=== PATIENT | female | born 1990 | race Caucasian/White ===

== ENCOUNTER 2018-01-10 12:40 | Emergency (ER) | payer SELFPAY ==
[~2018-01-10] VITALS: Ht 167.6 cm; Wt 117.3 kg
[~2018-01-10 12:40] MED LIST: NORVASC2.5 MG PO; VASOTEC 5MG5 MG/TAB PO; WELLBUTRIN 100100 MG PO; WELLBUTRIN SR100 M1 PO
[2018-01-10 12:44] VITALS: TEMP 99
[2018-01-10 13:39] LABS: COLLECTION METHOD CLEAN CATCH
[2018-01-10 13:43] LABS: BASO # 0.1 (0.0-0.2); BASO % 0.4 % (0.0-2.0); EOS # 0.1 (0.0-0.7); EOS % 0.4 % (0-4.0); GRAN # 8.6 (1.4-6.5); GRAN % 74.4 % (42.2-75.2); HEMATOCRIT 38.3 % (37.0-47.0); HEMOGLOBIN 12.7 g/dl (12.5-16.0); MEAN CELL VOLUME 87 fl (80.0-100.0); MEAN CORPUSCULAR HEMOGLOBIN 29 pg (27.0-31.0); MEAN CORPUSCULAR HGB CONC 33 g/dl (33.0-37.0); MONO # 0.9 (0.1-0.6); MONO % 7.4 % (1.7-9.3); PLATELET COUNT 295 K/mm3 (130-400); RED BLOOD COUNT 4.43 M/mm3 (4.10-5.30); REDCELL DISTRIBUTION WIDTH-CV 15.4 % (11.5-14.5)
[2018-01-10 13:47] LABS: MUCOUS Present /lpf; PH 7 (5-8); URINE APPEARANCE Hazy; URINE BACTERIA None Seen /hpf; URINE BILIRUBIN Negative (NEGATIVE); URINE BLOOD Negative (NEGATIVE); URINE COLOR Yellow; URINE GLUCOSE Negative (NEGATIVE); URINE KETONE Negative (NEGATIVE); URINE LEUKOCYTE ESTERASE 3+ (NEGATIVE); URINE NITRATE Negative (NEGATIVE); URINE PROTEIN(semi-quant) Negative (NEGATIVE); URINE UROBILINOGEN Negative (NEGATIVE)
[2018-01-10 13:56] LABS: ALBUMIN 4.1 gm/dL (3.5-5.0); BILIRUBIN,TOTAL 0.2 mg/dL (0.0-1.0); CREATININE, serum 0.77 mg/dL (0.52-1.25); POTASSIUM 4.1 mmol/L (3.4-5.0); TOTAL PROTEIN 7.2 gm/dL (6.4-8.2)
[2018-01-10 16:43] VITALS: BP 155/87; PULSE 88
== END 2018-01-10 16:44 | disposition home or self-care (01) ==
LOC: COL.ER 12:40
PROVIDERS: Physician Assistant Medical
DX: O26.891 Other specified pregnancy related conditions, first trimester (principal); N89.8 Other specified noninflammatory disorders of vagina; O99.341 Other mental disorders complicating pregnancy, first trimester; F41.9 Anxiety disorder, unspecified; O99.331 Smoking (tobacco) complicating pregnancy, first trimester; F17.210 Nicotine dependence, cigarettes, uncomplicated; Z3A.01 Less than 8 weeks gestation of pregnancy; Z87.01 Personal history of pneumonia (recurrent); Z87.442 Personal history of urinary calculi; Z98.890 Other specified postprocedural states

== ENCOUNTER → 2018-02-12 | Outpatient (REF) | LOC: ZLAB.WCH 17:55 | DX: Z01.89 Encounter for other specified special examinations (principal) ==

== ENCOUNTER 2018-03-12 23:21 | Emergency (ER) | payer SELFPAY ==
[~2018-03-12] VITALS: Ht 167.6 cm; Wt 118.2 kg
[2018-03-12 23:26] VITALS: TEMP 98.8
[2018-03-12] MEDS ORDERED: PRENATAL (23:37)
[2018-03-12 23:46] LABS: BASO % 0.3 % (0.0-2.0); EOS # 0.1 (0.0-0.7); EOS % 0.7 % (0-4.0); GRAN # 7.7 (1.4-6.5); GRAN % 67.4 % (42.2-75.2); HEMATOCRIT 36.6 % (37.0-47.0); HEMOGLOBIN 12.9 g/dl (12.5-16.0); LYMPH # 2.6 (1.2-3.4); MEAN CELL VOLUME 85 fl (80.0-100.0); MEAN CORPUSCULAR HEMOGLOBIN 30 pg (27.0-31.0); MEAN CORPUSCULAR HGB CONC 35 g/dl (33.0-37.0); MEAN PLATELET VOLUME 9.4 fl (7.4-10.4); MONO # 0.9 (0.1-0.6); MONO % 8.2 % (1.7-9.3); PLATELET COUNT 270 K/mm3 (130-400)
[2018-03-12 23:59] LABS: ALANINE AMINOTRANSFERASE 27 U/L (9-52); ALBUMIN 3.5 gm/dL (3.5-5.0); ALKALINE PHOSPHATASE 52 U/L (50-136); ANION GAP 15 mmol/L (7-16); AST,SGOT 14 U/L (15-37); BILIRUBIN,TOTAL < 0.1 mg/dL (0.0-1.0); BLOOD UREA NITROGEN 10 mg/dL (7-17); CARBON DIOXIDE 21 mmol/L (22-30); CHLORIDE 107 mmol/L (98-107); CREATININE, serum 0.63 mg/dL (0.52-1.25); GLUCOSE 87 mg/dL (74-106); POTASSIUM 3.9 mmol/L (3.4-5.0); SODIUM 142 mmol/L (137-145)
[2018-03-13 00:04] LABS: LIPASE 50 U/L (23-300)
[2018-03-13 00:11] LABS: GASTROCCULT POSITIVE; pH GASTRIC CONTENTS 7+
[2018-03-13] MEDS ORDERED: PHENERGAN 25 TA25 MG PO (00:56)
[2018-03-13] MEDS ORDERED: PROTONIX 40MG T40 MG PO (01:03)
[2018-03-13 01:09] VITALS: BP 117/79; PULSE 72
== END 2018-03-13 01:12 | disposition home or self-care (01) ==
LOC: COL.ER 23:21
PROVIDERS: Emergency Medicine
DX: O21.8 Other vomiting complicating pregnancy (principal); K92.0 Hematemesis; O16.2 Unspecified maternal hypertension, second trimester; O99.612 Diseases of the digestive system complicating pregnancy, second trimester; K21.9 Gastro-esophageal reflux disease without esophagitis; Z98.890 Other specified postprocedural states; Z3A.13 13 weeks gestation of pregnancy
CPT/HCPCS: C9113; J2405; J2550; J7030

== ENCOUNTER 2018-05-22 04:22 | Outpatient (CLI) | payer MEDICAID ==
[~2018-05-22] VITALS: Ht 167.6 cm; Wt 121.4 kg
[~2018-05-22 04:22] MED LIST changes: -ASPIRIN 81M81 MG/TA2 PO; -PRINIVIL20 MG PO
[2018-05-22 04:30] VITALS: BP 138/67; PULSE 83; TEMP 98.5
[2018-05-22 04:33] VITALS: BP 138/67; PULSE 83; TEMP 98.5
[2018-05-22] MEDS ORDERED: PRINIVIL20 MG PO (04:39)
[2018-05-22] MEDS ORDERED: ASPIRIN 81M81 MG/TA2 PO (04:40)
[2018-05-22 05:24] LABS: BASO % 0.3 % (0.0-2.0); EOS # 0.1 (0.0-0.7); EOS % 0.9 % (0-4.0); GRAN # 8.9 (1.4-6.5); GRAN % 71.9 % (42.2-75.2); LYMPH # 2.2 (1.2-3.4); LYMPH % 18.1 % (20.0-51.0); MEAN CELL VOLUME 91 fl (80.0-100.0); MEAN CORPUSCULAR HEMOGLOBIN 31 pg (27.0-31.0); MEAN CORPUSCULAR HGB CONC 34 g/dl (33.0-37.0); MEAN PLATELET VOLUME 9.4 fl (7.4-10.4); MONO # 0.9 (0.1-0.6); MONO % 7.6 % (1.7-9.3); PLATELET COUNT 250 K/mm3 (130-400); RED BLOOD COUNT 3.58 M/mm3 (4.10-5.30); REDCELL DISTRIBUTION WIDTH-CV 13.7 % (11.5-14.5)
[2018-05-22 05:25] LABS: HEMATOCRIT 32.6 % (37.0-47.0)
[2018-05-22 05:30] VITALS: BP 131/68; PULSE 76
[2018-05-22 05:55] LABS: HIV 1/2 Antibodies Non-Reactive; HIV-1p24 Antigen Non-Reactive
[2018-05-22 05:56] LABS: COLLECTION METHOD CLEAN CATCH
[2018-05-22 06:07] LABS: MUCOUS Present /lpf; PH 6 (5-8); SQUAMOUS EPITHELIAL 0-2 /hpf; URINE APPEARANCE Clear; URINE BACTERIA None Seen /hpf; URINE BILIRUBIN Negative (NEGATIVE); URINE BLOOD Negative (NEGATIVE); URINE CALCIUM OXALATE CRYSTAL Present /hpf; URINE COLOR Yellow; URINE GLUCOSE Negative (NEGATIVE); URINE KETONE Negative (NEGATIVE); URINE LEUKOCYTE ESTERASE Negative (NEGATIVE); URINE NITRATE Negative (NEGATIVE); URINE PROTEIN(semi-quant) Negative (NEGATIVE); URINE RBC 0-2 /hpf; URINE UROBILINOGEN Negative (NEGATIVE)
[2018-05-22 06:11] LABS: TRICYCLIC ANTIDEPRESS URINE NEGATIVE
[2018-05-22 15:22] LABS: HEPATITIS B SURFACE ANTIGEN Negative (())
[2018-05-23 05:23] LABS: RPR (VDRL) Non-reactive (())
== END 2018-05-22 06:35 | disposition home or self-care (01) ==
LOC: LDRO 04:22
PROVIDERS: Obstetrics & Gynecology
DX: O99.89 Other specified diseases and conditions complicating pregnancy, childbirth and the puerperium (principal); M54.9 Dorsalgia, unspecified; R10.9 Unspecified abdominal pain; Z3A.26 26 weeks gestation of pregnancy

== ENCOUNTER → 2018-05-22 | Outpatient (REF) ==
[~2018-05-22] MED LIST changes: +ASPIRIN 81M81 MG/TA2 PO; +PHENERGAN 25 TA25 MG PO; +PRENATAL; +PRINIVIL20 MG PO; +PROTONIX 40MG T40 MG PO
== END ==
LOC: ZLAB.WCH 08:38
DX: Z01.89 Encounter for other specified special examinations (principal)

== ENCOUNTER → 2018-06-19 | Outpatient (CLI) | payer MEDICAID ==
[~2018-06-19] MED LIST changes: +ASPIRIN 81M81 MG/TA2 PO; +PRINIVIL20 MG PO
== END ==
LOC: SUN.DIA 10:49
DX: O24.419 Gestational diabetes mellitus in pregnancy, unspecified control (principal); Z3A.29 29 weeks gestation of pregnancy
CPT/HCPCS: G0108

== ENCOUNTER 2018-07-22 00:37 | Outpatient (CLI) | payer MEDICAID ==
[~2018-07-22] VITALS: Ht 167.6 cm; Wt 116.8 kg
[2018-07-22 01:10] VITALS: BP 118/71; PULSE 83; TEMP 98.3
[2018-07-22] MEDS ORDERED: TRANDATE 100MG100 MG PO (01:26)
[2018-07-22 03:17] VITALS: BP 118/71; PULSE 83; TEMP 98.6
== END 2018-07-22 02:12 | disposition home or self-care (01) ==
LOC: LDRO 00:37
DX: O99.89 Other specified diseases and conditions complicating pregnancy, childbirth and the puerperium (principal); R10.30 Lower abdominal pain, unspecified; Z3A.34 34 weeks gestation of pregnancy

== ENCOUNTER 2018-07-29 00:01 | Outpatient (CLI) | payer MEDICAID ==
[~2018-07-29] VITALS: Ht 167.6 cm; Wt 119.1 kg
[~2018-07-29 00:01] MED LIST changes: +TRANDATE 100MG100 MG PO
[2018-07-29 00:30] VITALS: BP 130/84; PULSE 75; TEMP 98.2
[2018-07-29] MEDS ORDERED: CEPHALEXIN500 M1 PO (00:37)
[2018-07-29] MEDS ORDERED: PROTONIX 40MG T40 MG PO (00:38)
[2018-07-29] MEDS ORDERED: ASPIRIN 81M81 MG/TA2 PO (00:39)
[2018-07-29 00:40] VITALS: BP 142/79; PULSE 92
[2018-07-29 00:42] VITALS: BP 130/84; PULSE 75
[2018-07-29 00:45] VITALS: BP 148/88; PULSE 82
[2018-07-29 00:50] VITALS: BP 132/64; PULSE 77
== END 2018-07-29 01:40 | disposition home or self-care (01) ==
LOC: COL.ER 00:01 → LDRO 00:01 → EDSTATUS 00:24 → LDRO 01:40
DX: O99.89 Other specified diseases and conditions complicating pregnancy, childbirth and the puerperium (principal); R51 Headache; Z86.79 Personal history of other diseases of the circulatory system; Z3A.35 35 weeks gestation of pregnancy

== ENCOUNTER 2018-08-13 18:56 | Outpatient (CLI) | payer MEDICAID ==
[2018-08-13] VITALS (8 sets, daily range): BP systolic 133–141; BP diastolic 81–89; PULSE 87–108; TEMP 98.2
[~2018-08-13] VITALS: Ht 167.6 cm; Wt 119.1 kg
[~2018-08-13 18:56] MED LIST changes: +CEPHALEXIN500 M1 PO
[2018-08-13] MEDS ORDERED: TRANDATE 200MG200 MG PO (19:15)
[2018-08-13 20:12] LABS: BASO % 0.2 % (0.0-2.0); EOS # 0.1 (0.0-0.7); EOS % 0.8 % (0-4.0); GRAN # 9.2 (1.4-6.5); GRAN % 73.2 % (42.2-75.2); HEMOGLOBIN 11.6 g/dl (12.5-16.0); LYMPH % 15.8 % (20.0-51.0); MEAN CELL VOLUME 89 fl (80.0-100.0); MEAN CORPUSCULAR HEMOGLOBIN 30 pg (27.0-31.0); MEAN CORPUSCULAR HGB CONC 34 g/dl (33.0-37.0); MEAN PLATELET VOLUME 9.8 fl (7.4-10.4); MONO # 1.2 (0.1-0.6); MONO % 9.4 % (1.7-9.3); PLATELET COUNT 287 K/mm3 (130-400); RED BLOOD COUNT 3.86 M/mm3 (4.10-5.30); REDCELL DISTRIBUTION WIDTH-CV 13.4 % (11.5-14.5)
[2018-08-13 20:14] LABS: HEMATOCRIT 34.5 % (37.0-47.0)
[2018-08-13 20:19] LABS: ALBUMIN 3.2 gm/dL (3.5-5.0); BILIRUBIN,TOTAL 0.2 mg/dL (0.0-1.0); CALCIUM 8.9 mg/dL (8.4-10.2); CREATININE, serum 0.82 mg/dL (0.52-1.25); POTASSIUM 4.2 mmol/L (3.4-5.0); TOTAL PROTEIN 6.5 gm/dL (6.4-8.2)
[2018-08-13 20:22] LABS: COLLECTION METHOD CLEAN CATCH
[2018-08-13 20:29] LABS: MUCOUS Present /lpf; PH 6 (5-8); SQUAMOUS EPITHELIAL 0-2 /hpf; URINE APPEARANCE Clear; URINE BACTERIA Rare /hpf; URINE BILIRUBIN Negative (NEGATIVE); URINE BLOOD Negative (NEGATIVE); URINE COLOR Yellow; URINE GLUCOSE Negative (NEGATIVE); URINE KETONE Negative (NEGATIVE); URINE LEUKOCYTE ESTERASE Negative (NEGATIVE); URINE NITRATE Negative (NEGATIVE); URINE PROTEIN(semi-quant) Negative (NEGATIVE); URINE RBC 0-2 /hpf; URINE UROBILINOGEN Negative (NEGATIVE); URINE WBC 0-2 /hpf
== END 2018-08-13 20:59 | disposition home or self-care (01) ==
LOC: LDRO 18:56
PROVIDERS: Obstetrics & Gynecology
DX: O99.89 Other specified diseases and conditions complicating pregnancy, childbirth and the puerperium (principal); R42 Dizziness and giddiness; R25.2 Cramp and spasm; Z3A.37 37 weeks gestation of pregnancy

== ENCOUNTER 2018-08-15 06:22 | Inpatient (IN) | payer MEDICAID ==
[2018-08-15] VITALS (41 sets, daily range): BP systolic 103–174; BP diastolic 50–99; PULSE 54–108; TEMP 97.5–98.9
[~2018-08-15] VITALS: Ht 167.6 cm; Wt 119.1 kg
[~2018-08-15 06:22] MED LIST changes: +TRANDATE 200MG200 MG PO
[2018-08-15 08:08] LABS: BASO % 0.3 % (0.0-2.0); EOS # 0.1 (0.0-0.7); EOS % 0.7 % (0-4.0); GRAN # 8.6 (1.4-6.5); GRAN % 75.3 % (42.2-75.2); HEMOGLOBIN 11.5 g/dl (12.5-16.0); LYMPH # 1.7 (1.2-3.4); MEAN CELL VOLUME 89 fl (80.0-100.0); MEAN CORPUSCULAR HEMOGLOBIN 30 pg (27.0-31.0); MEAN CORPUSCULAR HGB CONC 34 g/dl (33.0-37.0); MONO # 0.9 (0.1-0.6); PLATELET COUNT 302 K/mm3 (130-400); RED BLOOD COUNT 3.86 M/mm3 (4.10-5.30); REDCELL DISTRIBUTION WIDTH-CV 13.4 % (11.5-14.5)
[2018-08-15 08:10] LABS: HEMATOCRIT 34.2 % (37.0-47.0)
[2018-08-15] MEDS ORDERED: PERCOCET 325 MG1 TA2 PO (16:14)
[2018-08-15] MEDS ORDERED: MOTRIN 800800 MG/TAB PO (16:14)
[2018-08-16 03:00] VITALS: BP 135/95; PULSE 75; TEMP 98
[2018-08-16 07:00] VITALS: BP 144/99; PULSE 82; TEMP 97.8
[2018-08-16 12:00] VITALS: BP 127/70; PULSE 68; TEMP 97.5
[2018-08-16 15:45] VITALS: BP 133/96; PULSE 76; TEMP 98.9
[2018-08-16 17:00] VITALS: BP 136/99; PULSE 80
[2018-08-16 20:35] VITALS: BP 156/96; PULSE 71; TEMP 99
[2018-08-17 01:50] VITALS: BP 153/90; PULSE 83
[2018-08-17 06:45] VITALS: BP 137/70; PULSE 72; TEMP 97.8
[2018-08-17] MEDS ORDERED: TRANDATE300 MG PO (09:29)
[2018-08-17] MEDS ORDERED: PERCOCET 325 MG1 TA2 PO (09:30)
== END 2018-08-17 11:40 | disposition home or self-care (01) | DRG 775 ==
LOC: OB 06:22 → LDR 06:22 → OB 20:00
PROVIDERS: Obstetrics & Gynecology
PROC: 10E0XZZ Delivery of Products of Conception, External Approach (ICD-10-PCS; principal; 2018-08-15)
PROC: 3E033VJ Introduction of Other Hormone into Peripheral Vein, Percutaneous Approach (ICD-10-PCS; 2018-08-15)
PROC: 10907ZC Drainage of Amniotic Fluid, Therapeutic from Products of Conception, Via Natural or Artificial Opening (ICD-10-PCS; 2018-08-15)
PROC: 0HQ9XZZ Repair Perineum Skin, External Approach (ICD-10-PCS; 2018-08-15)
DX: O11.4 Pre-existing hypertension with pre-eclampsia, complicating childbirth (principal); Z3A.37 37 weeks gestation of pregnancy; Z37.0 Single live birth; O24.420 Gestational diabetes mellitus in childbirth, diet controlled; O99.214 Obesity complicating childbirth; O70.0 First degree perineal laceration during delivery; O99.344 Other mental disorders complicating childbirth; F41.8 Other specified anxiety disorders; E66.01 Morbid (severe) obesity due to excess calories
CPT/HCPCS: J1200; J2590; J2795; J7120

== ENCOUNTER 2018-09-06 15:59 | Emergency (ER) | payer MEDICAID ==
[~2018-09-06] VITALS: Ht 167.6 cm; Wt 112.3 kg
[~2018-09-06 15:59] MED LIST changes: +MOTRIN 800800 MG/TAB PO; +PERCOCET 325 MG1 TA2 PO; +TRANDATE300 MG PO
[2018-09-06 16:07] VITALS: TEMP 99.1
[2018-09-06 16:25] LABS: COLLECTION METHOD CLEAN CATCH
[2018-09-06 16:40] LABS: MUCOUS Present /lpf; PH 6 (5-8); URINE APPEARANCE Clear; URINE BACTERIA None Seen /hpf; URINE BILIRUBIN Negative (NEGATIVE); URINE BLOOD 3+ (NEGATIVE); URINE COLOR Yellow; URINE GLUCOSE Negative (NEGATIVE); URINE KETONE Negative (NEGATIVE); URINE LEUKOCYTE ESTERASE 1+ (NEGATIVE); URINE NITRATE Negative (NEGATIVE); URINE PROTEIN(semi-quant) Negative (NEGATIVE); URINE UROBILINOGEN Negative (NEGATIVE)
[2018-09-06 16:43] LABS: BASO % 0.5 % (0.0-2.0); EOS # 0.1 (0.0-0.7); EOS % 1.5 % (0-4.0); GRAN # 5.1 (1.4-6.5); GRAN % 62.5 % (42.2-75.2); HEMATOCRIT 40.4 % (37.0-47.0); HEMOGLOBIN 13.1 g/dl (12.5-16.0); LYMPH # 2.2 (1.2-3.4); LYMPH % 26.4 % (20.0-51.0); MEAN CELL VOLUME 90 fl (80.0-100.0); MEAN CORPUSCULAR HEMOGLOBIN 29 pg (27.0-31.0); MEAN CORPUSCULAR HGB CONC 32 g/dl (33.0-37.0); MEAN PLATELET VOLUME 9.5 fl (7.4-10.4); MONO # 0.7 (0.1-0.6); MONO % 8.7 % (1.7-9.3); PLATELET COUNT 353 K/mm3 (130-400); RED BLOOD COUNT 4.49 M/mm3 (4.10-5.30); REDCELL DISTRIBUTION WIDTH-CV 13.4 % (11.5-14.5)
[2018-09-06 16:47] LABS: PROTHROMBIN TIME 10.9 SECONDS (9.7-12.8)
[2018-09-06 16:54] LABS: BILIRUBIN,TOTAL 0.3 mg/dL (0.0-1.0); CREATININE, serum 0.7 mg/dL (0.52-1.25); TOTAL PROTEIN 7.2 gm/dL (6.4-8.2)
[2018-09-06 18:23] VITALS: BP 120/85; PULSE 64
== END 2018-09-06 18:23 | disposition home or self-care (01) ==
LOC: COL.ER 15:59
PROVIDERS: Physician Assistant
DX: G43.909 Migraine, unspecified, not intractable, without status migrainosus (principal); I10 Essential (primary) hypertension; F41.9 Anxiety disorder, unspecified; F17.210 Nicotine dependence, cigarettes, uncomplicated; Z88.2 Allergy status to sulfonamides; Z88.1 Allergy status to other antibiotic agents
CPT/HCPCS: J1170; J1885; J2550; J7030

== ENCOUNTER 2019-02-05 22:44 | Emergency (ER) | payer MEDICAID ==
[~2019-02-05] VITALS: Ht 167.6 cm; Wt 121.8 kg
[2019-02-05 22:50] VITALS: TEMP 98.9
[2019-02-05] MEDS ORDERED: PRINIVIL20 MG PO (23:06)
[2019-02-05] MEDS ORDERED: DEPRESSION MED (23:07)
[2019-02-05] MEDS ORDERED: NEXPLANON68 MG ID (23:07)
[2019-02-06] MEDS ORDERED: PHENERGAN 25 TA25 MG PO (01:26)
[2019-02-06 02:18] VITALS: BP 140/81; PULSE 70
== END 2019-02-06 02:18 | disposition home or self-care (01) ==
LOC: COL.ER 22:44
DX: G43.909 Migraine, unspecified, not intractable, without status migrainosus (principal); J06.9 Acute upper respiratory infection, unspecified; I10 Essential (primary) hypertension; F17.210 Nicotine dependence, cigarettes, uncomplicated
CPT/HCPCS: J1100; J1200; J1885; J2550; J7030

== ENCOUNTER 2019-08-16 16:17 | Emergency (ER) | payer MEDICAID ==
[~2019-08-16] VITALS: Ht 167.6 cm; Wt 126.4 kg
[~2019-08-16 16:17] MED LIST changes: +DEPRESSION MED; +NEXPLANON68 MG ID
[2019-08-16 16:20] VITALS: BP 189/101; TEMP 98.4
[2019-08-16] MEDS ORDERED: FLEXERIL 1010 MG/TAB PO (16:24)
[2019-08-16] MEDS ORDERED: PREDNISONE10 MG PO (16:25)
[2019-08-16] MEDS ORDERED: EFFEXOR XR75 MG/CAP PO (16:26)
[2019-08-16] MEDS ORDERED: BUSPAR5 MG PO (16:26)
[2019-08-16] MEDS ORDERED: KLONOPIN 1MG1 MG PO (16:27)
[2019-08-16] MEDS ORDERED: FLONASE NASAL S16 GM (16:27)
[2019-08-16] MEDS ORDERED: NORCO 325 MG-7.1 TAB PO (16:56)
[2019-08-16] MEDS ORDERED: LIDODERM 5% PATC1 EA TP (17:03)
[2019-08-16 18:14] VITALS: PULSE 72
== END 2019-08-16 18:13 | disposition home or self-care (01) ==
LOC: COL.ER 16:17
DX: M54.5 Low back pain (principal); M62.830 Muscle spasm of back; I10 Essential (primary) hypertension; Z88.2 Allergy status to sulfonamides; Z88.1 Allergy status to other antibiotic agents
CPT/HCPCS: J1170; J2550

== ENCOUNTER 2019-09-04 16:56 | Emergency (ER) | payer MEDICAID ==
[~2019-09-04] VITALS: Ht 167.6 cm; Wt 127.3 kg
[~2019-09-04 16:56] MED LIST changes: +BUSPAR5 MG PO; +EFFEXOR XR75 MG/CAP PO; +FLEXERIL 1010 MG/TAB PO; +FLONASE NASAL S16 GM; +KLONOPIN 1MG1 MG PO; +LIDODERM 5% PATC1 EA TP; +NORCO 325 MG-7.1 TAB PO; +PREDNISONE10 MG PO
[2019-09-04 17:04] VITALS: TEMP 98.1
[2019-09-04] MEDS ORDERED: NORVASC 5MG5 MG/TAB PO (17:04)
[2019-09-04] MEDS ORDERED: DYAZIDE 25 MG-31 CAP PO (17:04)
[2019-09-04 17:31] LABS: BASO # 0.1 (0.0-0.2); BASO % 0.5 % (0.0-2.0); EOS # 0.2 (0.0-0.7); EOS % 1.6 % (0-4.0); GRAN # 8.6 (1.4-6.5); GRAN % 70.5 % (42.2-75.2); HEMOGLOBIN 11.5 g/dl (12.5-16.0); LYMPH # 2.4 (1.2-3.4); LYMPH % 19.7 % (20.0-51.0); MEAN CELL VOLUME 82 fl (80.0-100.0); MEAN CORPUSCULAR HEMOGLOBIN 26 pg (27.0-31.0); MEAN CORPUSCULAR HGB CONC 32 g/dl (33.0-37.0); MEAN PLATELET VOLUME 10.7 fl (7.4-10.4); MONO # 0.9 (0.1-0.6); MONO % 7.3 % (1.7-9.3); PLATELET COUNT 173 K/mm3 (130-400); RED BLOOD COUNT 4.44 M/mm3 (4.10-5.30); REDCELL DISTRIBUTION WIDTH-CV 15.8 % (11.5-14.5)
[2019-09-04 17:36] LABS: HEMATOCRIT 36.4 % (37.0-47.0)
[2019-09-04 17:45] LABS: ALANINE AMINOTRANSFERASE 22 U/L (9-52); ALBUMIN 4.5 gm/dL (3.5-5.0); ALKALINE PHOSPHATASE 75 U/L (50-136); ANION GAP 11 mmol/L (7-16); AST,SGOT 25 U/L (15-37); BILIRUBIN,TOTAL 0.2 mg/dL (0.0-1.0); BLOOD UREA NITROGEN 13 mg/dL (7-17); CALCIUM 9.6 mg/dL (8.4-10.2); CARBON DIOXIDE 24 mmol/L (22-30); CHLORIDE 106 mmol/L (98-107); CREATINE KINASE 89 U/L (30-135); CREATININE, serum 0.76 (0.52-1.25); GLUCOSE 87 mg/dL (74-106); POTASSIUM 3.8 mmol/L (3.4-5.0); SODIUM 140 mmol/L (137-145); TOTAL PROTEIN 7.7 gm/dL (6.4-8.2)
[2019-09-04 18:00] LABS: TROPONIN-I < 0.012 ng/mL (0.000-0.035)
[2019-09-04 18:46] VITALS: BP 136/86; PULSE 80
== END 2019-09-04 19:10 | disposition home or self-care (01) ==
LOC: COL.ER 16:56
PROVIDERS: Emergency Medicine
DX: I10 Essential (primary) hypertension (principal); R07.89 Other chest pain; G43.909 Migraine, unspecified, not intractable, without status migrainosus; F17.210 Nicotine dependence, cigarettes, uncomplicated; Z87.442 Personal history of urinary calculi
CPT/HCPCS: J3010

== ENCOUNTER 2019-10-19 13:07 | Emergency (ER) | payer MEDICAID ==
[~2019-10-19] VITALS: Ht 167.6 cm; Wt 125.0 kg
[~2019-10-19 13:07] MED LIST changes: +DYAZIDE 25 MG-31 CAP PO; +NORVASC 5MG5 MG/TAB PO
[2019-10-19 13:18] VITALS: TEMP 99.4
[2019-10-19 14:22] LABS: BASO % 0.2 % (0.0-2.0); EOS # 0.1 (0.0-0.7); EOS % 0.6 % (0-4.0); GRAN # 8.8 (1.4-6.5); GRAN % 81.1 % (42.2-75.2); HEMOGLOBIN 11.2 g/dl (12.5-16.0); LYMPH # 1.1 (1.2-3.4); LYMPH % 9.7 % (20.0-51.0); MEAN CELL VOLUME 82 fl (80.0-100.0); MEAN CORPUSCULAR HEMOGLOBIN 25 pg (27.0-31.0); MEAN CORPUSCULAR HGB CONC 31 g/dl (33.0-37.0); MEAN PLATELET VOLUME 9.3 fl (7.4-10.4); MONO # 0.9 (0.1-0.6); MONO % 8.1 % (1.7-9.3); PLATELET COUNT 322 K/mm3 (130-400); RED BLOOD COUNT 4.47 M/mm3 (4.10-5.30); REDCELL DISTRIBUTION WIDTH-CV 16.3 % (11.5-14.5)
[2019-10-19 14:32] LABS: ALANINE AMINOTRANSFERASE 26 U/L (9-52); ALBUMIN 4.1 gm/dL (3.5-5.0); ALKALINE PHOSPHATASE 63 U/L (50-136); ANION GAP 7 mmol/L (7-16); AST,SGOT 21 U/L (15-37); BILIRUBIN,TOTAL 0.3 mg/dL (0.0-1.0); BLOOD UREA NITROGEN 10 mg/dL (7-17); CALCIUM 8.6 mg/dL (8.4-10.2); CARBON DIOXIDE 26 mmol/L (22-30); CHLORIDE 107 mmol/L (98-107); CREATININE, serum 0.71 (0.52-1.25); GLUCOSE 90 mg/dL (74-106); LIPASE 24 U/L (23-300); SODIUM 139 mmol/L (137-145); TOTAL PROTEIN 7.1 gm/dL (6.4-8.2)
[2019-10-19 14:35] LABS: HEMATOCRIT 36.5 % (37.0-47.0)
[2019-10-19 14:54] LABS: TROPONIN-I < 0.012 ng/mL (0.000-0.035)
[2019-10-19] MEDS ORDERED: DYAZIDE 25 MG-31 CAP PO (16:25)
[2019-10-19] MEDS ORDERED: NORVASC 10MG10 MG PO (16:25)
[2019-10-19 17:25] VITALS: BP 143/95; PULSE 111
== END 2019-10-19 17:25 | disposition home or self-care (01) ==
LOC: COL.ER 13:07
PROVIDERS: Emergency Medicine
DX: I10 Essential (primary) hypertension (principal); R11.2 Nausea with vomiting, unspecified; Z87.442 Personal history of urinary calculi
CPT/HCPCS: J0780; J7040

== ENCOUNTER 2019-12-04 22:32 | Emergency (ER) | payer SELFPAY ==
[~2019-12-04] VITALS: Ht 167.6 cm; Wt 127.7 kg
[~2019-12-04 22:32] MED LIST changes: +NORVASC 10MG10 MG PO
[2019-12-04 22:37] VITALS: BP 138/95; TEMP 97.9
[2019-12-04 22:47] LABS: COLLECTION METHOD CLEAN CATCH
[2019-12-04 22:55] LABS: MUCOUS Present /lpf; PH 6 (5-8); URINE APPEARANCE Cloudy; URINE BACTERIA None Seen /hpf; URINE BILIRUBIN Negative (NEGATIVE); URINE BLOOD 3+ (NEGATIVE); URINE COLOR Yellow; URINE GLUCOSE Negative (NEGATIVE); URINE KETONE Negative (NEGATIVE); URINE LEUKOCYTE ESTERASE 3+ (NEGATIVE); URINE NITRATE Negative (NEGATIVE); URINE PROTEIN(semi-quant) 1+ (NEGATIVE); URINE RBC >50 /hpf; URINE UROBILINOGEN Negative (NEGATIVE)
[2019-12-04] MEDS ORDERED: OMNICEF 300MG300 MG PO (23:07)
[2019-12-04 23:59] VITALS: PULSE 91
== END 2019-12-04 23:59 | disposition home or self-care (01) ==
LOC: COL.ER 22:32
PROVIDERS: Emergency Medicine
DX: O23.91 Unspecified genitourinary tract infection in pregnancy, first trimester (principal); O99.331 Smoking (tobacco) complicating pregnancy, first trimester; Z3A.01 Less than 8 weeks gestation of pregnancy; Z88.0 Allergy status to penicillin; Z88.2 Allergy status to sulfonamides
CPT/HCPCS: A4216; J0696

== ENCOUNTER 2019-12-14 05:12 | Emergency (ER) | payer SELFPAY ==
[~2019-12-14] VITALS: Ht 157.5 cm; Wt 125.5 kg
[~2019-12-14 05:12] MED LIST changes: +OMNICEF 300MG300 MG PO
[2019-12-14 05:21] VITALS: TEMP 98.9
[2019-12-14 06:08] LABS: BASO # 0.1 (0.0-0.2); BASO % 0.6 % (0.0-2.0); EOS # 0.1 (0.0-0.7); EOS % 0.6 % (0-4.0); GRAN # 7.2 (1.4-6.5); GRAN % 66.7 % (42.2-75.2); HEMATOCRIT 37.3 % (37.0-47.0); HEMOGLOBIN 11.9 g/dl (12.5-16.0); LYMPH # 2.5 (1.2-3.4); LYMPH % 23.3 % (20.0-51.0); MEAN CELL VOLUME 82 fl (80.0-100.0); MEAN CORPUSCULAR HEMOGLOBIN 26 pg (27.0-31.0); MEAN CORPUSCULAR HGB CONC 32 g/dl (33.0-37.0); MEAN PLATELET VOLUME 9.7 fl (7.4-10.4); MONO # 0.9 (0.1-0.6); MONO % 8.3 % (1.7-9.3); PLATELET COUNT 324 K/mm3 (130-400); RED BLOOD COUNT 4.54 M/mm3 (4.10-5.30); REDCELL DISTRIBUTION WIDTH-CV 17.9 % (11.5-14.5)
[2019-12-14 06:19] LABS: ALANINE AMINOTRANSFERASE 16 U/L (9-52); ALKALINE PHOSPHATASE 57 U/L (50-136); ANION GAP 9 mmol/L (7-16); AST,SGOT 19 U/L (15-37); BILIRUBIN,TOTAL 0.3 mg/dL (0.0-1.0); BLOOD UREA NITROGEN 10 mg/dL (7-17); CALCIUM 8.9 mg/dL (8.4-10.2); CARBON DIOXIDE 20 mmol/L (22-30); CHLORIDE 108 mmol/L (98-107); CREATININE, serum 0.72 (0.52-1.25); GLUCOSE 85 mg/dL (74-106); LIPASE 37 U/L (23-300); POTASSIUM 4.1 mmol/L (3.4-5.0); SODIUM 138 mmol/L (137-145); TOTAL PROTEIN 7.1 gm/dL (6.4-8.2)
[2019-12-14 06:19] LABS: COLLECTION METHOD CLEAN CATCH
[2019-12-14 06:25] LABS: MUCOUS Present /lpf; PH 6 (5-8); URINE APPEARANCE Clear; URINE BACTERIA None Seen /hpf; URINE BILIRUBIN Negative (NEGATIVE); URINE BLOOD Negative (NEGATIVE); URINE COLOR Yellow; URINE GLUCOSE Negative (NEGATIVE); URINE KETONE Negative (NEGATIVE); URINE LEUKOCYTE ESTERASE Negative (NEGATIVE); URINE NITRATE Negative (NEGATIVE); URINE PROTEIN(semi-quant) Negative (NEGATIVE); URINE RBC 0-2 /hpf; URINE UROBILINOGEN Negative (NEGATIVE)
[2019-12-14 06:36] LABS: TROPONIN-I < 0.012 ng/mL (0.000-0.035)
[2019-12-14] MEDS ORDERED: NORCO 325 MG-51 TAB PO (10:05)
[2019-12-14] MEDS ORDERED: PHENERGAN 25 TA25 MG PO (10:05)
[2019-12-14 10:18] VITALS: BP 137/99; PULSE 89
== END 2019-12-14 10:22 | disposition home or self-care (01) ==
LOC: COL.ER 05:12
PROVIDERS: Emergency Medicine
DX: O26.891 Other specified pregnancy related conditions, first trimester (principal); O21.0 Mild hyperemesis gravidarum; R10.9 Unspecified abdominal pain; I10 Essential (primary) hypertension; R68.84 Jaw pain; Z3A.01 Less than 8 weeks gestation of pregnancy
CPT/HCPCS: J2405; J7030

== ENCOUNTER 2020-01-10 13:34 | Emergency (ER) | payer MEDICAID ==
[~2020-01-10] VITALS: Ht 167.6 cm; Wt 125.0 kg
[~2020-01-10 13:34] MED LIST changes: +NORCO 325 MG-51 TAB PO
[2020-01-10 13:43] VITALS: BP 131/83; TEMP 98.8
[2020-01-10 14:45] LABS: BASO # 0.1 (0.0-0.2); BASO % 0.4 % (0.0-2.0); EOS # 0.1 (0.0-0.7); EOS % 0.5 % (0-4.0); GRAN # 10.8 (1.4-6.5); HEMATOCRIT 39.3 % (37.0-47.0); HEMOGLOBIN 12.6 g/dl (12.5-16.0); LYMPH # 1.5 (1.2-3.4); LYMPH % 11.2 % (20.0-51.0); MEAN CELL VOLUME 84 fl (80.0-100.0); MEAN CORPUSCULAR HEMOGLOBIN 27 pg (27.0-31.0); MEAN CORPUSCULAR HGB CONC 32 g/dl (33.0-37.0); MEAN PLATELET VOLUME 9.4 fl (7.4-10.4); MONO # 1.2 (0.1-0.6); MONO % 8.5 % (1.7-9.3); PLATELET COUNT 317 K/mm3 (130-400); RED BLOOD COUNT 4.66 M/mm3 (4.10-5.30); REDCELL DISTRIBUTION WIDTH-CV 18.6 % (11.5-14.5)
[2020-01-10 14:58] LABS: BILIRUBIN,TOTAL 0.2 mg/dL (0.0-1.0); CALCIUM 8.5 mg/dL (8.4-10.2); CREATININE, serum 0.55 (0.52-1.25); POTASSIUM 4.4 mmol/L (3.4-5.0); TOTAL PROTEIN 7.2 gm/dL (6.4-8.2)
[2020-01-10] MEDS ORDERED: OMNICEF 300MG300 MG PO (16:48)
[2020-01-10] MEDS ORDERED: PROAIR HFA0.09 MG/AC IH (16:48)
[2020-01-10 17:14] LABS: COLLECTION METHOD CLEAN CATCH
[2020-01-10 17:40] VITALS: PULSE 99
[2020-01-10 17:50] LABS: AMORPHOUS CRYSTAL Present /uL; MUCOUS Present /lpf; PH 6 (5-8); URINE APPEARANCE Cloudy; URINE BACTERIA Rare /hpf; URINE BILIRUBIN Negative (NEGATIVE); URINE BLOOD Negative (NEGATIVE); URINE COLOR Yellow; URINE GLUCOSE Negative (NEGATIVE); URINE KETONE Trace (NEGATIVE); URINE LEUKOCYTE ESTERASE Trace (NEGATIVE); URINE NITRATE Negative (NEGATIVE); URINE PROTEIN(semi-quant) Negative (NEGATIVE); URINE TRIPLE PHOSPHATE CRYSTAL Present /hpf; URINE UROBILINOGEN Negative (NEGATIVE)
== END 2020-01-10 17:40 | disposition home or self-care (01) ==
LOC: COL.ER 13:34
PROVIDERS: Physician Assistant
DX: J20.9 Acute bronchitis, unspecified (principal); J06.9 Acute upper respiratory infection, unspecified; F17.210 Nicotine dependence, cigarettes, uncomplicated; Z87.442 Personal history of urinary calculi
CPT/HCPCS: J2405; J7030

== ENCOUNTER 2020-01-28 09:40 | Emergency (ER) | payer MEDICAID ==
[~2020-01-28] VITALS: Ht 167.6 cm; Wt 122.7 kg
[~2020-01-28 09:40] MED LIST changes: +PROAIR HFA0.09 MG/AC IH
[2020-01-28 09:46] VITALS: TEMP 98
[2020-01-28 10:11] LABS: COLLECTION METHOD CLEAN CATCH
[2020-01-28 10:28] LABS: MUCOUS Present /lpf; PH 7 (5-8); URINE APPEARANCE Hazy; URINE BACTERIA Rare /hpf; URINE BILIRUBIN Negative (NEGATIVE); URINE BLOOD 2+ (NEGATIVE); URINE COLOR Yellow; URINE GLUCOSE Negative (NEGATIVE); URINE KETONE Negative (NEGATIVE); URINE LEUKOCYTE ESTERASE 2+ (NEGATIVE); URINE NITRATE Negative (NEGATIVE); URINE PROTEIN(semi-quant) Negative (NEGATIVE); URINE RBC 0-2 /hpf; URINE UROBILINOGEN Negative (NEGATIVE)
[2020-01-28 10:33] LABS: BASO % 0.3 % (0.0-2.0); EOS % 0.3 % (0-4.0); GRAN # 9.3 (1.4-6.5); GRAN % 79.9 % (42.2-75.2); HEMATOCRIT 37.8 % (37.0-47.0); HEMOGLOBIN 12.6 g/dl (12.5-16.0); LYMPH # 1.6 (1.2-3.4); LYMPH % 13.2 % (20.0-51.0); MEAN CELL VOLUME 83 fl (80.0-100.0); MEAN CORPUSCULAR HEMOGLOBIN 28 pg (27.0-31.0); MEAN CORPUSCULAR HGB CONC 33 g/dl (33.0-37.0); MEAN PLATELET VOLUME 9.5 fl (7.4-10.4); MONO # 0.7 (0.1-0.6); PLATELET COUNT 300 K/mm3 (130-400); RED BLOOD COUNT 4.53 M/mm3 (4.10-5.30); REDCELL DISTRIBUTION WIDTH-CV 17.8 % (11.5-14.5)
[2020-01-28 12:36] VITALS: BP 102/64; PULSE 87
== END 2020-01-28 12:36 | disposition home or self-care (01) ==
LOC: COL.ER 09:40
PROVIDERS: Physician Assistant
DX: O26.891 Other specified pregnancy related conditions, first trimester (principal); O16.1 Unspecified maternal hypertension, first trimester; O99.331 Smoking (tobacco) complicating pregnancy, first trimester; O20.0 Threatened abortion; R51 Headache; Z3A.12 12 weeks gestation of pregnancy
CPT/HCPCS: J1200; J2765; J7030

== ENCOUNTER 2020-04-11 22:40 | Outpatient (CLI) | payer MEDICAID ==
[~2020-04-11] VITALS: Ht 167.6 cm; Wt 125.0 kg
--- NOTE | 2020-04-11 22:45 | NUR ---
G3L2. 24.0. Wheeled to LDR 4. Clean gown on. EFM and TOCO explained and applied. Pt states she is here for left lower abdominal pain that is "throbbing and states shoots down to her vagina." Pt denies pain in her back. Pt denies contractions, LOF or vaginal bleeding. VS and assessment completed. SVE closed. Plan of care explained to pt. 2310: called and updated on pts status. see physican notification.
[2020-04-11 22:46] VITALS: BP 138/91; PULSE 104; TEMP 98.9
[2020-04-11] MEDS ORDERED: TYLENOL 500MG500 MG PO (23:00)
[2020-04-11] MEDS ORDERED: PRENATAL TABLET PO (23:00)
[2020-04-11] MEDS ORDERED: PRIL40 PO (23:01)
[2020-04-11] MEDS ORDERED: ASPIRIN 81M81 MG/TA2 PO (23:01)
[2020-04-11 23:15] VITALS: BP 138/91; PULSE 104; TEMP 98.5
[2020-04-11 23:56] VITALS: BP 138/83; PULSE 94
--- NOTE | 2020-04-11 23:56 | NUR ---
Pt states her pain has gotten better after laying down for awhile here. States she still has throbbing/pressure pain that shoots down to her vagina but is "tolerable." Pt off monitors to change. 0005: Discharge instructions given to pt who verbalizes understanding. Pt states she has apt with tomorrow. Encouraged pt to keep apt. Pt ambulatory off unit.
== END 2020-04-12 00:05 | disposition home or self-care (01) ==
LOC: LDR 22:40 → LDRO 22:40
DX: O26.892 Other specified pregnancy related conditions, second trimester (principal); Z3A.24 24 weeks gestation of pregnancy
CPT/HCPCS: OP

== ENCOUNTER 2020-06-16 14:42 | Outpatient (CLI) | payer MEDICAID ==
[~2020-06-16] VITALS: Ht 167.6 cm; Wt 129.1 kg
[~2020-06-16 14:42] MED LIST changes: +PRENATAL TABLET PO; +PRIL40 PO; +TYLENOL 500MG500 MG PO
[2020-06-16 14:50] VITALS: BP 134/80; PULSE 133; TEMP 99
--- NOTE | 2020-06-16 15:00 | NUR ---
1438- Pt arrives on unit via wheelchair with complaints of cramping. She states she was diagnosed with H pylori at [facility] last week. She has had nausea and vomiting since then. She recently travelled to [place] where she was visiting her husbands family for 1 month. Was advised to quarentine at home for 14 days, she states she has been doing so since the 06/09/2020. She denies symptoms at this time. Pt very anxious, states she has vomited 4 times today. For the past 2 hours she has been having cramping and abd pain, unsure if they are contractions. 1442- EFM and TOCO on and tracing. VSS. Assessment completed. 1510- SVE, amniotrace negative, closed.
[2020-06-16] MEDS ORDERED: PEPCID 20MG TAB20 MG PO (15:01)
[2020-06-16 15:30] VITALS: BP 131/91; PULSE 129
[2020-06-16 16:00] VITALS: PULSE 119
[2020-06-16 16:30] VITALS: PULSE 112
[2020-06-16 17:04] VITALS: PULSE 112
--- NOTE | 2020-06-16 17:20 | NUR ---
1704- EFM and TOCO off. Pt up to void and change into street clothes. 1715- Discharge paperwork given and explained. Questions answered. IV removed without difficulty. 1720- Pt ambulates off unit in stable condition.
== END 2020-06-16 17:20 | disposition home or self-care (01) ==
LOC: LDRO 14:42 → LDR 14:46 → LDRO 17:20
DX: O26.893 Other specified pregnancy related conditions, third trimester (principal); R10.9 Unspecified abdominal pain; R11.2 Nausea with vomiting, unspecified; Z3A.33 33 weeks gestation of pregnancy; F17.210 Nicotine dependence, cigarettes, uncomplicated
CPT/HCPCS: OP; J2550; J7120

== ENCOUNTER → 2020-07-06 | Outpatient (CLI) | payer MEDICAID ==
[~2020-07-06] MED LIST changes: +PEPCID 20MG TAB20 MG PO; +ZOFRAN 4MG T4 MG/TAB PO
== END | disposition still patient (30) ==
LOC: ZCOL.LAB 05:52
DX: Z20.828 Contact with and (suspected) exposure to other viral communicable diseases (principal)

== ENCOUNTER 2020-07-12 06:50 | Inpatient (IN) | payer MEDICAID ==
[~2020-07-12] VITALS: Ht 167.6 cm; Wt 127.3 kg
[2020-07-12] VITALS (35 sets, daily range): BP systolic 111–149; BP diastolic 58–99; PULSE 70–102; TEMP 98.1–98.8
[~2020-07-12 06:50] MED LIST changes: -ZOFRAN 4MG T4 MG/TAB PO
--- NOTE | 2020-07-12 07:59 | NUR ---
0700 PATIENT HERE FOR INDUCTION. EFM ON FHT 120'S BABY VERY ACTIVE. ASSESSMENT COMPLETED. IV STARTED IN RIGHT WRIST LR HUNG AT THIS TIME
--- NOTE | 2020-07-12 08:36 | NUR ---
0845 DR PASCUAL AT BEDSIDE. AROM WITH LARGE AMOUNT OF CLEAR FLUID. /-2
[2020-07-12 08:40] LABS: BASO % 0.4 % (0.0-2.0); EOS # 0.1 (0.0-0.7); GRAN # 6.9 (1.4-6.5); GRAN % 68.9 % (42.2-75.2); HEMOGLOBIN 10.9 g/dl (12.5-16.0); LYMPH # 1.8 (1.2-3.4); LYMPH % 18.1 % (20.0-51.0); MEAN CELL VOLUME 87 fl (80.0-100.0); MEAN CORPUSCULAR HEMOGLOBIN 29 pg (27.0-31.0); MEAN CORPUSCULAR HGB CONC 33 g/dl (33.0-37.0); MEAN PLATELET VOLUME 10.2 fl (7.4-10.4); MONO % 10.2 % (1.7-9.3); PLATELET COUNT 247 K/mm3 (130-400); RED BLOOD COUNT 3.76 M/mm3 (4.10-5.30)
[2020-07-12 08:41] LABS: HEMATOCRIT 32.6 % (37.0-47.0)
--- NOTE | 2020-07-12 11:20 | NUR ---
2640 PATIENT READY FOR EPIDURAL. SITS ON EDGE OF BED. REBA HERNANDEZ AT BEDSIDE FOR PLACEMENT. SEE DEPARTMENT CLERK NOTES FOR QUESTIONS.
--- NOTE | 2020-07-12 12:34 | NUR ---
1233 ALL DISCHARGE INSTRUCTIONS GIVEN TO PATIENT VIA TRANSLATER. VERBAL UNDERSTANDING NOTED. DENIES NEEDS OR QUESTIONS.
--- NOTE | 2020-07-12 13:34 | NUR ---
BS 117. PATIETN COMPLAINS OF ITCHING. BENEDRYL 25 MG PO GIVEN PER ORDERS
--- NOTE | 2020-07-12 14:54 | NUR ---
1410 PATIENT FEELING PRESSURE. SVE /0 DR PASCUAL CALLED TO COME FOR DELIVERY NOW.
--- NOTE | 2020-07-12 14:56 | NUR ---
1430 HEALY OUT. PATIENT FEELING LOTS OF PRESSURE WIRH EACH CONTRACTION. DR PASCUAL AT BEDSIDE FOR DELIVERY. SVE COMPLETE, PATIENT WILL PUSH WITH CONTRACTION. 1431. PATIETN PUSHES AND BABY GIRL. NUCHAL TIMES ONE. CORD CLAMPED AND CUT BY DR PASCUAL. STRONG CRY NOTED. BABY TO MOMS CHEST. 1435 PLACENTA DELIVERED AND PITOCIN STARTED AT 333 PER PROTOCOL. SMALL REPAIR DONE AT THIS TIME PER . PATIENT TOLERATES WELL
--- NOTE | 2020-07-12 16:53 | NUR ---
LEFT LEG REMAINS NUMB
--- NOTE | 2020-07-12 17:37 | NUR ---
1730 LEFT LEG REMAINS NUMB. PERICARE DONE AT THIS TIME AND PADS CHANGED
[2020-07-13 02:34] VITALS: BP 125/77; PULSE 75; TEMP 98.5
[2020-07-13 08:07] VITALS: BP 134/92; PULSE 78; TEMP 98.1
--- NOTE | 2020-07-13 09:07 | NUR ---
Initial visit; Mom thanked Tube Coverer for offering congratulations and God's blessings for the of her daughter. Tube Coverer thanked Mom for choosing [facility].
[2020-07-13] MEDS ORDERED: MOTRIN 800800 MG/TAB PO (10:20)
[2020-07-13] MEDS ORDERED: PERCOCET 325 MG1 TA2 PO (10:20)
[2020-07-13 15:31] VITALS: BP 120/68; PULSE 74; TEMP 98.1
[2020-07-13 19:00] VITALS: BP 152/108; PULSE 72; TEMP 98.6
[2020-07-13 19:45] VITALS: BP 149/92; PULSE 77
[2020-07-14 07:20] VITALS: BP 118/72; PULSE 75; TEMP 98.4
[2020-07-14 16:00] VITALS: BP 124/76; PULSE 74; TEMP 98
--- NOTE | 2020-07-14 19:08 | NUR ---
1730 pt requesting 2 percocet every 4 hours today for cramping, she calls her pain a 9 and after percocet a 3-4. warm blanket used that helped a little. ordered milk of mag and pt did have some results that provided a little relief. unable to take alot of other kind of pain meds. pt not up much and slept most of am and sent baby to [facility].
== END 2020-07-14 17:30 | disposition home or self-care (01) | DRG 806 ==
LOC: LDR 06:50 → OB 06:50
PROVIDERS: ADMIT Obstetrics & Gynecology
PROC: 10E0XZZ Delivery of Products of Conception, External Approach (ICD-10-PCS; principal; 2020-07-12)
PROC: 10907ZC Drainage of Amniotic Fluid, Therapeutic from Products of Conception, Via Natural or Artificial Opening (ICD-10-PCS; 2020-07-12)
PROC: 0UQGXZZ Repair Vagina, External Approach (ICD-10-PCS; 2020-07-12)
DX: O10.02 Pre-existing essential hypertension complicating childbirth (principal); O99.354 Diseases of the nervous system complicating childbirth; Z37.0 Single live birth; O71.4 Obstetric high vaginal laceration alone; G43.909 Migraine, unspecified, not intractable, without status migrainosus; O99.214 Obesity complicating childbirth; E66.9 Obesity, unspecified; O99.344 Other mental disorders complicating childbirth; F32.9 Major depressive disorder, single episode, unspecified; F41.9 Anxiety disorder, unspecified; O99.824 Streptococcus B carrier state complicating childbirth; O24.420 Gestational diabetes mellitus in childbirth, diet controlled; O69.81X0 Labor and delivery complicated by cord around neck, without compression, not applicable or unspecified; Z3A.37 37 weeks gestation of pregnancy
CPT/HCPCS: J0690; J2590; J7120

== ENCOUNTER 2020-07-22 18:23 | Observation (INO) | payer MEDICAID ==
[2020-07-21 22:18] VITALS: BP 145/91; PULSE 93
[~2020-07-22] VITALS: Ht 167.6 cm; Wt 119.3 kg
[2020-07-22 19:06] LABS: BASO # 0.1 (0.0-0.2); BASO % 0.7 % (0.0-2.0); EOS # 0.1 (0.0-0.7); EOS % 0.9 % (0-4.0); GRAN # 8.7 (1.4-6.5); GRAN % 72.6 % (42.2-75.2); HEMATOCRIT 37.6 % (37.0-47.0); LYMPH # 1.9 (1.2-3.4); LYMPH % 16.1 % (20.0-51.0); MEAN CELL VOLUME 87 fl (80.0-100.0); MEAN CORPUSCULAR HEMOGLOBIN 28 pg (27.0-31.0); MEAN CORPUSCULAR HGB CONC 32 g/dl (33.0-37.0); MEAN PLATELET VOLUME 9.1 fl (7.4-10.4); MONO # 1.1 (0.1-0.6); MONO % 9.1 % (1.7-9.3); PLATELET COUNT 318 K/mm3 (130-400); RED BLOOD COUNT 4.33 M/mm3 (4.10-5.30); REDCELL DISTRIBUTION WIDTH-CV 13.7 % (11.5-14.5)
[2020-07-22 19:29] LABS: ALBUMIN 3.7 gm/dL (3.5-5.0); BILIRUBIN,TOTAL 0.3 mg/dL (0.0-1.0); CREATININE, serum 0.94 (0.52-1.25); POTASSIUM 3.7 mmol/L (3.4-5.0); TOTAL PROTEIN 6.9 gm/dL (6.4-8.2)
[2020-07-22] MEDS ORDERED: NORCO 325 MG-51 TAB PO (19:52)
[2020-07-22] MEDS ORDERED: ZOFRAN 4MG T4 MG/TAB PO (20:18)
[2020-07-22 21:08] LABS: COLLECTION METHOD CLEAN CATCH
[2020-07-22 21:35] LABS: MUCOUS Present /lpf; PH 6 (5-8); URINE APPEARANCE Hazy; URINE BACTERIA Rare /hpf; URINE BILIRUBIN Negative (NEGATIVE); URINE BLOOD 3+ (NEGATIVE); URINE COLOR Yellow; URINE GLUCOSE Negative (NEGATIVE); URINE KETONE 1+ (NEGATIVE); URINE LEUKOCYTE ESTERASE 3+ (NEGATIVE); URINE NITRATE Negative (NEGATIVE); URINE PROTEIN(semi-quant) 1+ (NEGATIVE); URINE RBC 20-50 /hpf; URINE UROBILINOGEN Negative (NEGATIVE)
[2020-07-22 21:51] LABS: COLLECTION METHOD CATHETER
[2020-07-22 22:03] VITALS: BP 145/91; PULSE 93
[2020-07-22 22:05] LABS: MUCOUS Present /lpf; PH 5 (5-8); URINE APPEARANCE Clear; URINE BACTERIA None Seen /hpf; URINE BILIRUBIN Negative (NEGATIVE); URINE BLOOD 1+ (NEGATIVE); URINE COLOR Yellow; URINE GLUCOSE Negative (NEGATIVE); URINE KETONE 1+ (NEGATIVE); URINE LEUKOCYTE ESTERASE Negative (NEGATIVE); URINE NITRATE Negative (NEGATIVE); URINE PROTEIN(semi-quant) Negative (NEGATIVE); URINE UROBILINOGEN Negative (NEGATIVE)
[2020-07-22 22:18] VITALS: BP 145/91; PULSE 93
[2020-07-22 22:33] VITALS: BP 134/95; PULSE 70
--- NOTE | 2020-07-22 22:35 | NUR ---
Pt arrived to the floor via wheelchair. Pt was able to ambulate to the bed. Pt stated that her pain is ok for now. Pt did explain her situation that she is going through right now. Her has left her and she has two other children and just had a baby 10 days ago. She was very emotional and stated that this is very hard for her. Pt is currently lying in bed and has her call light within reach.
[2020-07-23] VITALS (13 sets, daily range): BP systolic 119–158; BP diastolic 51–95; PULSE 62–93; TEMP 97–98.6
--- NOTE | 2020-07-23 05:55 | NUR ---
Pt has been resting well throughout the night. Pt has been NPO after midnight. I did contact Dr. Adames to see if he wanted anything else ordered. He was ok with pt eating before midngiht. Pt has her call light within reach and her bed is in lowest position.
--- NOTE | 2020-07-23 09:26 | NUR ---
Initial visit; Patient thanked Structural Steel Detailer for looking in on her and offering God's blessings and to keep her in Structural Steel Detailer's prayers.
--- NOTE | 2020-07-23 16:20 | NUR ---
Paver Operator met with patient to discuss discharge planning. Patient lives in [place] with her three children. Patient states she has three girls ages 9, 2, and 10 days old. Patient advised her grandmother is watching her oldest child and her friend Trixie (ph#[phone]) is watching her two youngest. Patient expressed frustration because she reports there are people who don't think she cares for her children. Patient states her neighbor has called [facility] on her but she states she never leaves her children home alone and always makes sure they are cared for, even when she is sick. Patient states she is in the process of getting from her Horace (ph#[phone]). Patient states Horace is currently in [place]. Patient states she has had good support from her family during this time. Patient sees Dr. Masterson at [facility] for primary care and obtains medications from [facility] with no difficulties. Patient states she was supposed to submit applications for food stamps and koch assistance today, but wasn't able to complete them as she has been sick. With patient's permission, SW contacted the [facility] and was transferred to call center that reviews cases. SW left a message and provided update to patient. Patient states she doesn't know who she has been working with. Patient plans to return home at discharge and states she has a ride arranged. SW will continue to follow.
--- NOTE | 2020-07-23 19:13 | NUR ---
Patient on a ORDERING BOX OPERATOR prior to the OR, pain was well controlled. ORDERING BOX OPERATOR D/Cd after returning to the floor, patient denied pain upon return and has not complained of it since. Patient is currently eating dinner, denies nausea. Call light within reach.
--- NOTE | 2020-07-23 20:15 | NUR ---
PT HAS VOIDED AND EATEN AND PAIN IS CONTROLLED. REVIEWED DISCHARGE INSTRUCTIONS WITH PATIENT. DC'D INT TO RIGHT AC, ANGIOCATH INTACT. PT'S RIDE IS HERE.
--- NOTE | 2020-07-23 20:30 | NUR ---
DC'D VIA W/C. PERSONAL BELONGINGS AND COPY OF DISCHARGE INSTRUCTIONS SENT WITH PATIENT.
== END 2020-07-23 20:30 | disposition home or self-care (01) ==
LOC: COL.ER 18:23 → SURG 21:07
PROVIDERS: Emergency Medicine; ADMIT Urology
DX: N20.1 Calculus of ureter (principal); F17.210 Nicotine dependence, cigarettes, uncomplicated; I10 Essential (primary) hypertension; G47.33 Obstructive sleep apnea (adult) (pediatric); G43.909 Migraine, unspecified, not intractable, without status migrainosus; F41.9 Anxiety disorder, unspecified; F32.9 Major depressive disorder, single episode, unspecified; K21.9 Gastro-esophageal reflux disease without esophagitis; Z88.5 Allergy status to narcotic agent; Z88.2 Allergy status to sulfonamides; Z91.040 Latex allergy status; Z88.8 Allergy status to other drugs, medicaments and biological substances
CPT/HCPCS: C1769; C2617; G0378; J0690; J1100; J1170; J1885; J2405; J2704; J3010; J7030; J7120; Q9967

== ENCOUNTER 2020-10-14 08:30 | Outpatient (RCR) | payer MEDICAID ==
[~2020-10-14 08:30] MED LIST changes: +ZOFRAN 4MG T4 MG/TAB PO
== END 2020-11-29 | disposition still patient (30) ==
LOC: MKS.ESL.PT
DX: M54.5 Low back pain (principal)

== ENCOUNTER 2021-02-21 23:15 | Observation (INO) | payer MEDICAID ==
[~2021-02-21] VITALS: Ht 167.6 cm; Wt 130.2 kg
[2021-02-21 23:57] LABS: BASO # 0.1 (0.0-0.2); BASO % 0.8 % (0.0-2.0); EOS # 0.2 (0.0-0.7); EOS % 2.4 % (0-4.0); GRAN # 6.2 (1.4-6.5); GRAN % 61.7 % (42.2-75.2); HEMATOCRIT 35.8 % (37.0-47.0); HEMOGLOBIN 11.4 g/dl (12.5-16.0); LYMPH # 2.6 (1.2-3.4); MEAN CELL VOLUME 85 fl (80.0-100.0); MEAN CORPUSCULAR HEMOGLOBIN 27 pg (27.0-31.0); MEAN CORPUSCULAR HGB CONC 32 g/dl (33.0-37.0); MEAN PLATELET VOLUME 9.6 fl (7.4-10.4); MONO # 0.8 (0.1-0.6); MONO % 8.4 % (1.7-9.3); PLATELET COUNT 356 K/mm3 (130-400); RED BLOOD COUNT 4.21 M/mm3 (4.10-5.30); REDCELL DISTRIBUTION WIDTH-CV 16.2 % (11.5-14.5)
[2021-02-22] VITALS (17 sets, daily range): BP systolic 118–156; BP diastolic 68–109; PULSE 72–89; TEMP 98–98.9; O2SAT 93
[2021-02-22 00:01] LABS: INR 0.9 (0.8-3.0); PROTHROMBIN TIME 10.4 SECONDS (9.7-12.8)
[2021-02-22 00:03] LABS: ALANINE AMINOTRANSFERASE 21 U/L (4-34); ALKALINE PHOSPHATASE 70 U/L (50-136); ANION GAP 7 mmol/L (7-16); AST,SGOT 21 U/L (15-37); BILIRUBIN,TOTAL < 0.1 mg/dL (0.0-1.0); BLOOD UREA NITROGEN 12 mg/dL (7-17); CARBON DIOXIDE 24 mmol/L (22-30); CHLORIDE 108 mmol/L (98-107); CREATINE KINASE 113 U/L (30-135); CREATININE, serum 0.69 (0.52-1.25); GLUCOSE 98 mg/dL (74-106); POTASSIUM 4.1 mmol/L (3.4-5.0); SODIUM 139 mmol/L (137-145); TOTAL PROTEIN 7.4 gm/dL (6.4-8.2)
[2021-02-22 00:16] LABS: TROPONIN-I < 0.012 ng/mL (0.000-0.035)
--- NOTE | 2021-02-22 04:15 | NUR ---
Patient arrived from the emergency department via stretcher. She walked from the stretcher to the ICU bed. She is stable on her feet. Her vitals are stable. Blood Pressure is 128/75. Heart rate is 80. Her oxygen saturation is 99 on Room Air. She has no complaints other than being hungry. She has Esmolol running at 100 mcg/kg/min.
[2021-02-22 05:46] LABS: BASO # 0.1 (0.0-0.2); BASO % 0.9 % (0.0-2.0); EOS # 0.2 (0.0-0.7); EOS % 2.3 % (0-4.0); GRAN # 5.6 (1.4-6.5); GRAN % 57.9 % (42.2-75.2); HEMATOCRIT 35.6 % (37.0-47.0); HEMOGLOBIN 11.3 g/dl (12.5-16.0); LYMPH # 2.8 (1.2-3.4); LYMPH % 29.3 % (20.0-51.0); MEAN CELL VOLUME 86 fl (80.0-100.0); MEAN CORPUSCULAR HEMOGLOBIN 27 pg (27.0-31.0); MEAN CORPUSCULAR HGB CONC 32 g/dl (33.0-37.0); MEAN PLATELET VOLUME 10.2 fl (7.4-10.4); MONO # 0.9 (0.1-0.6); MONO % 8.9 % (1.7-9.3); PLATELET COUNT 351 K/mm3 (130-400); RED BLOOD COUNT 4.15 M/mm3 (4.10-5.30); REDCELL DISTRIBUTION WIDTH-CV 16.5 % (11.5-14.5)
[2021-02-22 05:51] LABS: CALCIUM 8.8 mg/dL (8.4-10.2); CREATININE, serum 0.62 (0.52-1.25); POTASSIUM 3.9 mmol/L (3.4-5.0)
--- NOTE | 2021-02-22 07:00 | NUR ---
PT SITTING SIDE OF BED EATING BREAKFAST. PT MAXED ON ESMELOL DRIP AT [employer]MCG. [facility].
--- NOTE | 2021-02-22 13:06 | NUR ---
Surveillance Officer met with patient to discuss discharge planning. Patient's "ex-/fiance", Horace is at bedside. Patient states she and Horace are currently but plan to get again as they are back together. Patient lives in [place] with Horace and their three children ages 10, 2, and 7 months[address] Keyanna sees Dr. Masterson for primary care and obtains medications from [facility] with no difficulties. Patient does not use any DME and is independent with ADLS. Patient does not have Advance Directives and is not interested in designating DPOA-HC at this time. Patient is not and does not have any adult children. Patient's next of kin would be her mother, Paula (ph#[phone]). Patient states her unmanned aircraft systems roboticist is tired and needs to be relieved so she is trying to get in touch with a friend to see if they can watch her kids as she will not discharge today. SW inquired if Horace could watch the children and patient states Horace can not watch the children as a condition of their divorce. Discharge plan: Return home.
--- NOTE | 2021-02-22 16:00 | NUR ---
SPOKE WITH REGARDING PT HAVING A HEADACHE AND NAUSEA. PRN MEDS GIVEN. ESMOLOL DRIP STOPPED AND PRN HYDRALAZINE GIVEN. 1730- SPOKE WITH . STATES OK TO TRANSFER TO MEDICAL IF BED AVAILABLE.
--- NOTE | 2021-02-22 21:49 | NUR ---
I recieved report from Sweetie CHRISTINA, patient had a slight headache but said she was feeling much better. She recieved the Reglan/Benedryl combo about 30 minutes before my shift. I left to get her some water and I came back to the room to find her sleeping. She slept for an hour and a half until I brought her the evening medicine and I woke her up. She said she's feeling fine and was so sound asleep. She is currently sleeping with no complaints. Current blood pressure is 146/102. Vitals are stable.
[2021-02-23] VITALS: BP 125/67; PULSE 101; TEMP 98.5
[2021-02-23 04:00] VITALS: BP 121/70; PULSE 73; TEMP 97.9
[2021-02-23 08:00] VITALS: BP 127/76; PULSE 66; TEMP 98.7
[2021-02-23] MEDS ORDERED: OMNICEF 300MG300 MG PO (10:03)
[2021-02-23] MEDS ORDERED: TYLENOL 325MG325 MG PO (10:03)
[2021-02-23] MEDS ORDERED: IMITREX50 MG PO (10:03)
[2021-02-23] MEDS ORDERED: NORVASC 5MG5 MG/TAB PO (10:03)
[2021-02-23] MEDS ORDERED: FLONASE NASAL S16 GM NS (10:04)
[2021-02-23] MEDS ORDERED: ZOFRAN 4MG T4 MG/TAB PO (10:04)
[2021-02-23] MEDS ORDERED: HCTZ 25MG TAB25 MG PO (10:04)
--- NOTE | 2021-02-23 10:24 | NUR ---
Initial visit; Patient thanked Distribution Warehouse Manager for offering God's blessings and keeping her in Distribution Warehouse Manager's prayers.
--- NOTE | 2021-02-23 10:57 | NUR ---
Sintering Press Operator attended clinical rounds with the team and patient to discharge home today.
--- NOTE | 2021-02-23 10:59 | NUR ---
PT discharged home. PT still complains of headache, but states it is not abnormal to what she has normally. PT has follow up with PCP 03/02/21 and will be receiving a call from neurology for an initial visit. PT is ambulatory off the unit.
== END 2021-02-23 10:59 | disposition home or self-care (01) ==
LOC: COL.ER 23:15 → ICU 02-22 01:12
PROVIDERS: Emergency Medicine; Student in an Organized Health Care Education/Training Program; ADMIT Hospitalist
DX: I16.0 Hypertensive urgency (principal); G43.909 Migraine, unspecified, not intractable, without status migrainosus; R60.0 Localized edema; D64.9 Anemia, unspecified; R91.1 Solitary pulmonary nodule; F17.210 Nicotine dependence, cigarettes, uncomplicated; I37.1 Nonrheumatic pulmonary valve insufficiency; I08.1 Rheumatic disorders of both mitral and tricuspid valves; L25.8 Unspecified contact dermatitis due to other agents; T46.1X5A Adverse effect of calcium-channel blockers, initial encounter; Y92.230 Patient room in hospital as the place of occurrence of the external cause
CPT/HCPCS: G0378; J0360; J1200; J1650; J2405; J2765; J7050

== ENCOUNTER → 2021-03-03 | Outpatient (CLI) | payer MEDICAID ==
[~2021-03-03] MED LIST changes: +DOXYCYCLINE 10100 MG PO; +FLONASE NASAL S16 GM NS; +HCTZ 25MG TAB25 MG PO; +IMITREX50 MG PO; +TYLENOL 325MG325 MG PO
== END ==
LOC: COL.RAD 10:22
DX: M47.26 Other spondylosis with radiculopathy, lumbar region (principal); M47.27 Other spondylosis with radiculopathy, lumbosacral region

== ENCOUNTER 2021-04-23 02:42 | Emergency (ER) | payer MEDICAID ==
[~2021-04-23] VITALS: Ht 167.6 cm; Wt 127.3 kg
[~2021-04-23 02:42] MED LIST changes: -DOXYCYCLINE 10100 MG PO
[2021-04-23] MEDS ORDERED: DOXYCYCLINE 10100 MG PO (03:36)
[2021-04-23 04:43] VITALS: BP 138/99; PULSE 84; TEMP 98.1
== END 2021-04-23 04:43 | disposition home or self-care (01) ==
LOC: COL.ER 02:42
DX: J01.90 Acute sinusitis, unspecified (principal); I10 Essential (primary) hypertension; F17.210 Nicotine dependence, cigarettes, uncomplicated; Z88.1 Allergy status to other antibiotic agents; Z79.52 Long term (current) use of systemic steroids; Z79.899 Other long term (current) drug therapy
CPT/HCPCS: J1885

== ENCOUNTER → 2021-05-10 | Outpatient (CLI) | payer MEDICAID ==
[~2021-05-10] MED LIST changes: +DOXYCYCLINE 10100 MG PO
== END ==
LOC: MHCPAIN 14:22
DX: M47.817 Spondylosis without myelopathy or radiculopathy, lumbosacral region (principal); M54.16 Radiculopathy, lumbar region; M53.3 Sacrococcygeal disorders, not elsewhere classified; M79.2 Neuralgia and neuritis, unspecified
CPT/HCPCS: G0463

== ENCOUNTER 2022-02-13 23:33 | Emergency (ER) | payer MEDICAID ==
[~2022-02-13] VITALS: Ht 167.6 cm; Wt 129.5 kg
[2022-02-14 00:06] LABS: BASO # 0.1 K/mm3 (0.0-0.2); BASO % 0.7 % (0.0-2.0); EOS # 0.2 K/mm3 (0.0-0.7); EOS % 2.3 % (0.0-4.0); GRAN # 6.2 K/mm3 (1.4-6.5); GRAN % 64.9 % (42.2-75.2); HEMOGLOBIN 12.1 g/dl (12.5-16.0); LYMPH % 20.5 % (20.0-51.0); MEAN CELL VOLUME 84 fl (80.0-100.0); MEAN CORPUSCULAR HEMOGLOBIN 28 pg (27-31); MEAN CORPUSCULAR HGB CONC 33 g/dl (33.0-37.0); MEAN PLATELET VOLUME 9.5 fl (7.4-10.4); MONO % 10.3 % (1.7-9.3); PLATELET COUNT 348 K/mm3 (130-400); RED BLOOD COUNT 4.39 M/mm3 (4.10-5.30); REDCELL DISTRIBUTION WIDTH-CV 15.8 % (11.5-14.5)
[2022-02-14 00:07] LABS: HEMATOCRIT 36.8 % (37.0-47.0)
[2022-02-14 00:26] LABS: ALANINE AMINOTRANSFERASE 27 U/L (0-55); ALBUMIN 3.9 gm/dL (3.5-5.0); ALKALINE PHOSPHATASE 75 U/L (40-150); ANION GAP 11 mmol/L (7-16); AST,SGOT 17 U/L (5-34); BILIRUBIN,TOTAL 0.2 mg/dL (0.2-1.2); BLOOD UREA NITROGEN 13 mg/dL (7-19); CARBON DIOXIDE 22 mmol/L (22-29); CHLORIDE 108 mmol/L (98-107); CREATININE, serum 0.74 mg/dL (0.57-1.11); GLUCOSE 125 mg/dL (70-99); POTASSIUM 3.8 mmol/L (3.5-4.5); SODIUM 141 mmol/L (136-145); TOTAL PROTEIN 7.2 gm/dL (6.2-8.1)
[2022-02-14 00:29] LABS: TROPONIN-I < 0.010 ng/mL (0.00-0.033)
[2022-02-14] MEDS ORDERED: ZITHROMAX Z PA250 MG PO (01:00)
[2022-02-14] MEDS ORDERED: OMNICEF 300MG300 MG PO (01:00)
[2022-02-14] MEDS ORDERED: HCTZ 25MG TAB25 MG PO (01:06)
[2022-02-14 01:28] VITALS: BP 186/134; PULSE 84; TEMP 98.4
== END 2022-02-14 01:28 | disposition home or self-care (01) ==
LOC: COL.ER 23:33
PROVIDERS: Emergency Medicine
DX: J18.9 Pneumonia, unspecified organism (principal); Z88.1 Allergy status to other antibiotic agents; Z88.2 Allergy status to sulfonamides; Z91.040 Latex allergy status; Z91.14 Patient's other noncompliance with medication regimen

== ENCOUNTER 2022-04-10 18:41 | Emergency (ER) | payer MEDICAID ==
[~2022-04-10] VITALS: Ht 167.6 cm; Wt 131.3 kg
[~2022-04-10 18:41] MED LIST changes: +ZITHROMAX Z PA250 MG PO
[2022-04-10 19:02] VITALS: TEMP 98.7
[2022-04-10] MEDS ORDERED: OMNICEF 300MG300 MG PO (19:28)
[2022-04-10] MEDS ORDERED: PRINIVIL10 MG PO (19:28)
[2022-04-10 20:05] VITALS: BP 180/98; PULSE 82
== END 2022-04-10 20:06 | disposition home or self-care (01) ==
LOC: COL.ER 18:41
DX: I10 Essential (primary) hypertension (principal); J32.9 Chronic sinusitis, unspecified; F17.210 Nicotine dependence, cigarettes, uncomplicated; Z91.040 Latex allergy status; Z88.1 Allergy status to other antibiotic agents; Z28.310 Unvaccinated for COVID-19

== ENCOUNTER 2022-05-21 18:20 | Emergency (ER) | payer MEDICAID ==
[~2022-05-21] VITALS: Ht 167.6 cm; Wt 129.1 kg
[~2022-05-21 18:20] MED LIST changes: +PRINIVIL10 MG PO
[2022-05-21] MEDS ORDERED: ZOFRAN ODT4 MG PO (19:24)
[2022-05-21 19:51] VITALS: TEMP 101
[2022-05-21 20:13] VITALS: BP 153/95; PULSE 101
== END 2022-05-21 20:08 | disposition home or self-care (01) ==
LOC: COL.ER 18:20
DX: U07.1 COVID-19 (principal); F17.210 Nicotine dependence, cigarettes, uncomplicated; Z91.040 Latex allergy status; Z28.310 Unvaccinated for COVID-19
CPT/HCPCS: J1885; J2405; J7030